=== PATIENT | female | born 1955 | race Caucasian/White ===

== ENCOUNTER 2022-09-28 06:20 | Day surgery (SDC) | payer MEDICARE, BC, SELFPAY ==
[2022-09-28] VITALS (18 sets, daily range): BP systolic 129–149; BP diastolic 66–92; PULSE 60–73; RESP 14–16; TEMP 36.2–37.1; O2SAT 94–100; BMI 33.0
[2022-09-28] MEDS: LACTATED RINGERS 1000 ML 1,000 ML 100 ML IV (06:15)
[2022-09-28] MEDS: CELECOXIB 200 MG CAPSULE PO (06:53)
[2022-09-28] MEDS: ACETAMINOPHEN 500 MG TABLET 1000 MG PO (06:53)
[2022-09-28] MEDS: OXYCODONE (CR) 10 MG TAB.ER.12H PO (06:54)
[2022-09-28] MEDS: SODIUM CHLORIDE 0.9 % (FLUSH) 10 ML SYRINGE IVF (06:54)
--- NOTE | 2022-09-28 07:09 | SUR.PREOP ---
TIME?OUT:?0736 PT/RN/MDA?VERIFICATION?OF?SURGICAL?SITE Left [place],?PROCEDURE supraclavicular nerve block,?AND?CONSENT OBTAINED?PRIOR?TO?INVASIVE?PROCEDURE.
[2022-09-28] MEDS: fentaNYL 100 MCG/2 ML inj IVP (07:38)
[2022-09-28] MEDS: MIDAZOLAM HCL 1 MG/ML inj IVP (07:38)
[2022-09-28] MEDS: CEFAZOLIN 2 GM INJ IVP (07:55)
--- NOTE | 2022-09-28 08:12 | P.NB_ITS ---
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 Images saved: Yes Medications given in 5ml increments after negative aspiration: Ropivicaine %: 0.5 mL: 20 Needle gauge: 22 Decadron (mg): 10 Precedex (mcg): 25 Patient tolerated procedure well: Yes Block Charges Block Charge (with Pro Fee): Brachial Plexus Use of Ultrasound Machine for Block: Yes- US Guidance/pain block
--- NOTE | 2022-09-28 08:12 | W.ANESCHARGE ---
Anesthesia Charges Start Date/Time Anesthesia Start Date: 09/28/22 Anesthesia Start Time: 07:50 Stop Date/Time Anesthesia Stop Date: 09/28/22 Anesthesia Stop Time: 10:45
[2022-09-28] MEDS: SODIUM CHLORIDE IRRIG SOLUTION 3,000 ML, EPINEPHrine 1 MG IRRIGATION (08:58)
--- NOTE | 2022-09-28 10:05 | PM.ORPRC ---
Procedure Note Date of procedure: 09/28/22 Procedure: PREOPERATIVE DIAGNOSIS: Left shoulder massive rotator cuff tear, AC joint arthrosis, biceps tendinopathy POSTOPERATIVE DIAGNOSIS: Left shoulder massive rotator cuff tear, AC joint arthrosis, biceps tendinopathy NAME OF OPERATION: Left shoulder arthroscopic subacromial decompression, distal clavicle excision, mini open rotator cuff repair, biceps tenodesis SURGEON: Serjio Thomas MD CONVERTER SUPERVISOR: Hiral Kilpatrick PA-C ANESTHESIA: Supraclavicular block plus general endotracheal ESTIMATED BLOOD LOSS: 20 mL COMPLICATIONS: None SPECIMENS: None DRAINS: None PREOPERATIVE ANTIBIOTICS: Ancef 2 grams INDICATIONS: The patient is a 67-year-old with a history of left shoulder pain secondary to the above diagnoses. Despite appropriate non operative management, they continue to have symptoms. Operative intervention was recommended. The risks, benefits and expected outcomes were discussed in detail. These included but were not limited to: Infection, bleeding, injury to blood vessel or nerve, venous thromboembolism. All questions were answered to their satisfaction. A modifier 22 should be added to this case. The massive size of the tear and the amount of retraction made repair quite difficult. This more than doubled the time typically required to complete the case. PROCEDURE: A supraclavicular block was placed by Anesthesia. General anesthesia was administered. The patient was placed in the high beach chair position. The left shoulder was prepped and draped in the usual sterile fashion. The glenohumeral joint was infiltrated with 20 mL of normal saline with epinephrine. The posterior portal was established, the arthroscope was introduced. The anterior portal was established, Diagnostic arthroscopy was performed with findings as follows: The biceps has a significant amount of intra-articular tendinopathy. There is degenerative fraying of anterior, posterior and superior labrum. Articular surfaces on the humeral head and glenoid are normal. There are no loose bodies. There is a full-thickness tear of the supraspinatus and infraspinatus with retraction. The biceps was tenotomized with the arthroscopic scissors, the stump debrided with the shaver. The arthroscope was placed in the subacromial space, the lateral portal was established. The Arthrex [place] was used to dissect the acromion free. The CA ligament was recessed off the anterior acromion, the AC joint was exposed. The acromioplasty was performed with the bur in the posterior portal. The bur was then placed in the lateral portal and the lateral and anterior aspect of the acromion were resected. The undersurface of the distal clavicle was resected through the lateral portal. Finally, the bur was placed in the anterior portal and the remainder of the distal clavicle was resected for a total of 10 mm. An accessory anterolateral portal was placed. The subacromial/subdeltoid bursa was aggressively debrided. There is a full-thickness tear of the supraspinatus and infraspinatus, with retraction to the glenoid rim. A fiber link was placed in the leading edge of the rotator cuff x3. The cuff was bluntly mobilized on both its bursal and joint surfaces. Arthroscopic instruments were removed. The accessory anterolateral portal was extended proximally and distally, subcutaneous dissection was taken with electrocautery to the deltoid. The deltoid was divided in line with its fibers. The static retractor was placed. The subacromial/subdeltoid bursa was debrided with the [place] scissors. The greater tuberosity was debrided to punctate bleeding bone using the arthroscopic bur. Three Arthrex Bio[employer] SwiveLock anchors were placed just off the articular surface. Both limbs of the FiberWire and fiber tape were passed using the scorpion. A SutureTape was placed in an inverted mattress fashion in the upper subscap. A fiber link was placed in the biceps. A margin convergence suture was placed in the rotator interval. We then proceeded with a lateral row of SwiveLock anchors x 2 crossing the FiberTape and incorporating the fiber link into each lateral row anchor. Finally, the FiberWire sutures were tied over the superior aspect of the cuff, completing the repair. This provides an excellent repair of the rotator cuff. The wound was irrigated with normal saline off the pump. The deltoid was repaired with an 0 Vicryl in an interrupted [id number] fashion. Subcutaneous tissues were closed with a 3-0 Vicryl. Skin was closed with a 3-0 Monocryl in a subcuticular fashion. A dry dressing, polar care and sling were applied. Sponge and needle counts were correct x2. The patient tolerated the procedure well. There were no apparent complications. They were carefully transferred to the hospital bed and taken to the postanesthesia care unit in satisfactory condition. PLAN: The patient will be discharged to home. No active range of motion of the shoulder will be allowed for 6 weeks postoperatively. They can work on active range of motion of the elbow, wrist and fingers. They will follow up in the office next week for a wound check and an AP and transscapular Y-view of the shoulder prior to being seen.
[2022-09-28] MEDS: fentaNYL 100 MCG/2 ML inj 50 MCG IVP ×2 (10:42→11:00)
--- NOTE | 2022-09-28 10:46 | W.ANESCHARGE ---
Anesthesia Charges Start Date/Time Anesthesia Start Date: 09/28/22 Anesthesia Start Time: 07:50 Stop Date/Time Anesthesia Stop Date: 09/28/22 Anesthesia Stop Time: 10:45
[2022-09-28] MEDS: hydrOXYzine pamoate 25 MG CAPSULE PO (11:42)
[2022-09-28] MEDS: OxyCODONE/APAP 5-325 TABLET 1 TAB PO (12:25)
== END 2022-09-28 13:20 | disposition home or self-care (01) ==
PROVIDERS: PCP Family Medicine; Visit Provider Orthopaedic Surgery
PROC: (CPT 23412; principal; 2022-09-28 07:45)
DX: M75.102 Unspecified rotator cuff tear or rupture of left shoulder, not specified as traumatic (principal); M19.012 Primary osteoarthritis, left shoulder; M75.22 Bicipital tendinitis, left shoulder; G89.18 Other acute postprocedural pain
CPT/HCPCS: 29826; 29827; 29824; 23412; 01630; 64415; 76942; A9270; C1713; J0171; J0330; J0690; J1100; J2250; J2405; J2704; J2795; J3010; J7120; L3670

== ENCOUNTER 2023-03-06 10:30 | Outpatient (RCR) | payer MEDICARE, BC, SELFPAY ==
--- NOTE | 2022-10-06 11:49 | PT.OPEX ---
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 MY NECK IS KILLING ME AND MY WRIST ISN'T SUPPORT. ALSO, THE PAIN IS AWFUL BUT I 'M TRYING TO GET OFF THE PAIN MEDS. PATIENT IS LATE TO EVAL D/T VOMITING PRIOR TO VISIT. SHE IS WEARING HER SLING AND SWATH APPROPRIATELY BUT CHALLENGED WITH COMFORT. 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 Preferred Name CLAUDIA Precautions Treatment Precautions/Contraindications 10/05: NO AROM UNTIL S/P 6 WEEKS AND WEAR SLING, NWB Weight Bearing Status Non-Weight Bearing Therapy Limitations/Systems Review Not Limited Objective Other/Pertinent Objective CERVICAL ROM: WFL BUT TAUT ABOUT THE UPPER TRAP/LEV SCAP L SHOULDER PROM Flexion: 76 Abduction: 68 Internal Rotation: NT External Rotation: @45 12 SHOULDER MMT: NT JOINT MOBILITY/PALPATION: PTT ABOUT THE SHOULDER TX: PROM X 20MIN ELBOW FLEX /EXT TO TOLERANCE WRIST AROM PENDULUM Assessment Assessment/Impression 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 ELIZALDE REFERRED TO PHYSICAL THERAPY POD8 S/P RTC REPAIR ( SUP/INF/SUB), BICEPS TENODESIS , BRIT, DC 09/28/22 TO EVAL AND TX; PMHX INCLUDES BUT NOT LIMITED TO LUMBAR STENOSIS , PERFORATION OF TYMPANIC MEMBRANE, GERD, H/O BONE GRAFT , S/P BUNIONECTOMY, AND H/O ACL REPAIR; SHE LIVES WITH HER SPOUSE WHO IS ASSISTING HER DURING HER RECOVERY BUT HE, TOO, HAS FUNCTIONAL MOBILITY CHALLENGES. SHE IS HERE TODAY FOR HER FIRST VISIT POST OP WITH HER SLING AND SWATH WORN APPROPRIATELY BUT C/O TIGHTNESS ABOUT THE NECK AND NOT ENOUGH SUPPORT AT THE WRIST. WE ADDRESSED THIS AT THE END OF OUR SESSION BY TIGHTENING THE ABD STRAP TO ALLOW FOR LESS PULL WELL REPOSITIONED THE ARM AND ADJUSTED THE STRAPS AROUND THE NECK. SHE REPORTS MODERATE TO HIGH PAIN USING FREQUENT ICE, PO OTC, AND REST WITH THE VERBALIZATION THAT SHE IS ATTEMPTING TO WEAN OFF HER NARCOTICS. TODAY, SHE HAS BILATERAL UPPER TRAP AND LEVATOR SCAP TAUTNESS WITH PALPABLE DISCOMFORT WHICH WE ADDRESS WITH ADJUSTING SLING AND PROVIDING CERVICAL STRETCHING. PROVIDED PROM TO HER LEFT SHOULDER NOTING GOOD PROM APPROPRIATE FOR HER STATUS POST SURGICAL INTERVENTION. SHE PERFORMED AND INSTRUCTED ON ELBOW, WRIST AND FOREARM AROM TO TOLERANCE NOTING GENTLE ELBOW FLEX D/T HER BICEPS TENODESIS. SHE IS APPROPRIATE FOR SKILLED PHYSICAL THERAPY TO ADDRESS SYMPTOM MGMT, ROM, STRENGTHENING, AND STABILIZATION. PATIENT VERBALIZED UNDERSTANDING TO ALL SKILLED INSTRUCTION. Primary Functional Limitations BATHING DRESSING REACHING USE OF LEFT UE Plan of Care Rehabilitation Potential Good Physical Therapy Goals STG: IN 4-6 WEEKS 1. PATIENT WILL REPORT PAIN <5 /10 2. PATIENT WILL ACHIEVE PROM TO 110 DEGREES FLEX 3. PATIENT WILL BE INDEPENDENT WITH BATHING AND DRESSING. LT-14 WEEKS 1. PATIENT WILL ACHIEVE FULL PROM 2. PATIENT WILL REACH OVERHEAD AND ACROSS BODY FOR IADL'S 3. PATIENT WILL BE INDEPENDENT WITH HER HEP AND PROGRESSION Coordination/Communication With Referral Source Treatment Plan/Direct Interventions Ice/Cold/Vasopneumatic,Joint Mobilization,Manual Therapy, Therapeutic Activities, Therapeutic Exercises Frequency/Duration 2W12 Patient Will Be Discharged From Therapy Completion of LTG(s), Independently Progressing Evaluation Billing Untimed Code Treatment Minutes 15 PT Eval No Charge No Complexity Moderate Certification Information Initial Certification Date 10/05/22 Ending Certification Date 12/28/22 Physician Comment/Change : Physician NPI Number #
--- NOTE | 2023-01-01 12:33 | PT.OPDNX ---
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 I PRETTY MUCH BABY'D IT ALL WEEKEND. Pain Comments 2-5/10 AT REST Preferred Name CLAUDIA Precautions Treatment Precautions/Contraindications 10/05: NO AROM UNTIL S/P 6 WEEKS AND WEAR SLING, NWB 11/09/22: BEGIN AAROM->AROM AND WEAN OUT OF SLING, WBAT Home Exercise Home Exercise Comments 11/10/22: UPDATED HEP TO INCLUDE TABLE SLIDE IN FLEX AND SCAPTION, SUPINE AAROM CHEST PRESS, AAROM PROTRACTION, YAMILET TO TOLERANCE 11/27/22: UPDATED HEP TO INCLUDE ISOMETRICS AND SCAP CLOCK AROM 12/01/22: ADD WT SHIFTS 10- X 10 SEC AND SUPINE PROPRIOCEPTION (CIRCLES, ALPHA ) 12/18/22: UPDATE TO INCLUDE WAND AAROM STDG, WALL WALKS, SIDELYING ER Objective Other/Pertinent Objective CERVICAL ROM: WFL BUT TAUT ABOUT THE UPPER TRAP/LEV SCAP L SHOULDER PROM Flexion: 76; 10/17/11 95; 116; 11/16/22 130; 12/04/22 150 Abduction: 68; 10/16/22 90; 90; 11/16/22 90; 12/04/22 92 Internal Rotation: NT External Rotation: @45 12 11/02 NT; @45 20;12/04/22 32 LEFT SHOULDER AROM: S'FLEX 11/09/22 24; 11/16/22 82/; 12/04/22 116; 12/22/22 130 S'ABD 11/09/22 22; 11/16/22 60; 88; 12/22/22 110 S'ER 11/09/22@0 2; 11/16/22 6@ 0abd; 12/04/22 @0 26 S'IR: 11/09/22 LATERAL HIP; 11/16 bottom of gluteal; 12/04/ UPPER 2/3RD GLUTEAL; 12/22/22 L5 SHOULDER MMT: NT JOINT MOBILITY/PALPATION: PTT ABOUT THE SHOULDER Patient Instructed in Risks/Benefits Yes Therapeutic Exercise Therapeutic Exercise Minutes (minutes) 30 Therapeutic Exercise: To Restore UBE 5' AAROM (FWD ONLY) Functional Status YAMILET 4 MIN STDG WALL SLIDE INTO FLEX 5 X5SEC STDG WAND AAROM ABD AND FLEX X10 THEN 5 X 5 SEC AT END RANGE STDG CC ROW X 15 HOLD 2 12.5KG STDG CC LPD X 15 HOLD 2 12.5KG STDG B'ER YELLOW TUBE X 15 SUPINE TWENTY-NINE PALMS L/R X 20 SUPINE ALPHABET NOT TODAY SIDELYING ER W/ ROLL X 15 0# SIDELYING S'ABD TO CRISTIANE X 10 SUPINE PROTRACTION X 15 1# PRONE ROW X 15 3# PRONE S'EXT X15 2# PRONE S'HABD X 15 #0 PRONE S'SCAPTION X 15 0# SUPINE S'FLEX (WAND) 10 X 5SEC NOT TODAY SUPINE CIRCLES X 15 CW/CCW 1# SUPINE WAND PROTRACTION X 15 1 # NOT TODAY: WALL SNOW MARRY TO TOLERANCE FACING WALL X 10 STDG TB (GREEN) ROW W/2 SEC PAUSE STDG TB (GREEN) S'EXT X 15 W/2 SEC PAUSE STDG WALL FLEX STRETCH X 10 HOLD 5 SEC Manual Therapy Techniques Manual Therapy Minutes (minutes) 15 Manual Therapy Techniques PROM LEFT SHOULDER ALL DIRECTIONS GHJ MOB GRADE 2 SUPERIOR-> INFERIOR GHJ MOB GRADE 2 ANTERIOR-> POSTERIOR Treatment Minutes Timed Code Treatment Minutes 45 Total Treatment Time 45 Billing Units Manual Therapy Units 1 Therapeutic Exercise Units 2 Plan of Care Physical Therapy Goals STG: IN 4-6 WEEKS 1. PATIENT WILL REPORT PAIN <5 /10 GOAL MET 2. PATIENT WILL ACHIEVE PROM TO 110 DEGREES FLEX GOAL MET 3. PATIENT WILL BE INDEPENDENT WITH BATHING AND DRESSING. GOAL MET LT-14 WEEKS 1. PATIENT WILL ACHIEVE FULL PROM 2. PATIENT WILL REACH OVERHEAD AND ACROSS BODY FOR IADL'S 3. PATIENT WILL BE INDEPENDENT WITH HER HEP AND PROGRESSION Daily Plan of Care Continue per POC Recertification Information Initial Certification Date 10/05/22 Recertification Start Date 01/02/23 Recertification Due Date 03/31/23 Reasons to Continue Skilled Therapy MRS. 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 SHE DEMONSTRATES CONSISTENT PROGRESS NOTING IMPROVEMENT FROM PROM 76 DEGREES TO 150 AND 68 DEGREES ABD TO 92. ADDITIONALLY, SINCE SHE HAS BEEN ALLOWED TO WORK AROM SHE HAS IMPROVED FROM 24 DEGREES FLEX TO 130 AND FROM 22 DEGREES ABD TO 110. WE ARE CONSISTENTLY WORKING ON GAINING FULL ROM, STRENGTH, AND PROPRIOCEPTION TO RETURN TO FULL FUNCTIONAL USE OF HER LEFT ARM. SHE WOULD BENEFIT FROM CONTINUED SKILLED PHYSICAL THERAPY TO ALLOW HER FULL, UNRESTRICTED USE OF HER LEFT UE FOR ADL'S, FAMILY AND PEER CENTERED ACTIVITIES. Rehabilitation Potential EXCELLENT Continued Plan of Care and Interventions CONTINUED RTC/SCAPULAR STRENGTHENING, ROM, AND PROPRIOCEPTION BY WAY OF THER EX, NMR, JOINT MOBILIZATION, AND SYMPTOM MGMT Provider Signature Shows Agreement With POC & Medical Necessity Physician Comment/Change Comment or Changes
== END 2023-03-15 12:15 | disposition home or self-care (01) ==
PROVIDERS: PCP Family Medicine; Visit Provider Physician Assistant
DX: Z98.890 Other specified postprocedural states (principal); M25.512 Pain in left shoulder; M19.012 Primary osteoarthritis, left shoulder; Z51.89 Encounter for other specified aftercare
CPT/HCPCS: 97035; 97110; 97140; 97162

== ENCOUNTER 2023-11-28 11:20 | Emergency (ER) | payer MEDICARE, BC, SELFPAY ==
[2023-11-28 11:26] VITALS: BP 188/97; PULSE 83; RESP 18; TEMP 36.4; O2SAT 96; BMI 32.3
[2023-11-28 11:29] VITALS: BP 152/91
--- NOTE | 2023-11-28 11:47 | ED.WOUNDLAC ---
HPI - Wound/Laceration General Time Seen by Provider: 11:24 Chief Complaint: Laceration/Wound Stated Complaint: Fell hit head Time Seen by Provider: 11/28/23 11:24 Source: patient and RN notes reviewed Mode of arrival: ambulatory Limitations: no limitations History of Present Illness HPI narrative: this 68-year-old female is coming in with a wound to the back of her left head. She was cleaning up her sewing room, sitting in a rolling chair on the plastic below it. She bent over to pick something up and the chair scooted out from behind her. She fell sideways on a metal cabinet hitting the corner of it. She has some localized pain at the wound, it did not bleed much. Her tetanus was in 2016. She has no headache, no visual changes. She is not on any blood thinners. We did discuss CT imaging. 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 She is foregoing CT imaging and I do think it is reasonable. She is well aware of signs and symptoms of head injury that would necessitate imaging. 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 This injury happened just prior to ar Related Data Home Medications ?Medication ?Instructions ?Recorded ?Confirmed calcium 325 mg-vit D3 12.5 2 tab PO BID 09/11/22 12/18/22 mcg-zinc 2.75 [id number]-[id number] tablet (Citracal-D3 Maximum Plus) cholecalciferol (vitamin D3) 50 50 mcg PO QDAY 09/11/22 12/18/22 mcg (2,000 unit) capsule (Vitamin D3) fexofenadine 180 mg tablet 180 mg PO Q24H 09/11/22 12/18/22 (Maude Allergy) fluticasone propionate 50 2 spray intranasal DAILY 09/11/22 12/18/22 mcg/actuation nasal spray,suspension glucosamine HCl 500 mg tablet 1,000 mg PO QDAY 09/11/22 12/18/22 losartan 50 mg tablet 50 mg PO DAILY 09/11/22 12/18/22 magnesium 200 mg tablet 400 mg PO QDAY 09/11/22 12/18/22 omeprazole 20 mg capsule,delayed 20 mg PO DAILY 09/11/22 12/18/22 release rosuvastatin 10 mg tablet 10 mg PO QPM 09/11/22 12/18/22 triamcinolone acetonide 0.1 % 1 applic topical 09/11/22 12/18/22 topical cream cetirizine 10 mg tablet (Zyrtec) 10 mg PO BID PRN 12/18/22 12/18/22 Allergies Allergy/AdvReac Type Severity Reaction Status Date / Time Sulfa (Sulfonamide Allergy Severe Hives Verified 12/18/22 09:45 Antibiotics) amlodipine [From [facility]] Allergy edema Verified 12/18/22 09:45 niacin Allergy Verified 12/18/22 09:45 Review of Systems Narrative: As per HPI. [facility] Medical History (Updated 11/28/23 @ 11:50 by Silvia Kincaid MD) Tear film insufficiency ?H04.129 - Dry eye syndrome of unspecified lacrimal gland (ICD-10) Presbyopia ?H52.4 - Presbyopia (ICD-10) Gastric ulcer ?K25.9 - Gastric ulcer, unspecified as acute or chronic, without hemorrhage or perforation (ICD-10) Gastric outlet obstruction ?K31.1 - Adult hypertrophic pyloric stenosis (ICD-10) Essential hypertension ?I10 - Essential (primary) hypertension (ICD-10) Spinal stenosis of lumbar region ?M48.061 - Spinal stenosis, lumbar region without neurogenic claudication (ICD-10) Pyloric stenosis ?K31.1 - Adult hypertrophic pyloric stenosis (ICD-10) Perforation of tympanic membrane ?H72.90 - Unspecified perforation of tympanic membrane, unspecified ear (ICD-10) Gastroesophageal reflux disease ?K21.9 - Gastro-esophageal reflux disease without esophagitis (ICD-10) Surgical History (Updated 11/02/22 @ 12:59 by Austin Fields) S/P arthroscopy of left shoulder (09/28/22) ?Z98.890 - Other specified postprocedural states (ICD-10) Hx of varicose vein stripping ?Z98.890 - Other specified postprocedural states (ICD-10) Hx of bone graft ?Z98.890 - Other specified postprocedural states (ICD-10) H/O vein stripping ?Z98.890 - Other specified postprocedural states (ICD-10) Status post bunionectomy ?Z98.890 - Other specified postprocedural states (ICD-10) History of tonsillectomy and adenoidectomy ?Z90.89 - Acquired absence of other organs (ICD-10) History of esophagogastroduodenoscopy (EGD) ?Z98.890 - Other specified postprocedural states (ICD-10) History of ear surgery ?Z98.890 - Other specified postprocedural states (ICD-10) History of colonoscopy ?Z98.890 - Other specified postprocedural states (ICD-10) History of appendectomy ?Z90.49 - Acquired absence of other specified parts of digestive tract (ICD-10) History of repair of anterior cruciate ligament of left knee ?Z98.890 - Other specified postprocedural states (ICD-10) S/P right rotator cuff repair (05/03/05) ?Z98.890 - Other specified postprocedural states (ICD-10) Family History (Updated 11/02/22 @ 12:54 by Austin Fields) Father Atrial fibrillation High blood pressure Renal cell carcinoma Mother Dementia Other Diabetes Social History (Reviewed 12/18/22 @ 09:46 by Paris Wilde ~ [facility]) Narrative: does not use illicit drugs nonsmoker occasional alcohol consumption Smoking Status: Never smoker Do you use any of these nicotine containing products: None Second hand tobacco smoke exposure: No How often do you have a drink containing alcohol: monthly or less How many standard drinks containing alcohol do you have on a typical day: 1 or 2 How often do you have six or more drinks on one occasion: Never AUDIT-C Alcohol total score: 1 Non-prescribed substance use: denies use Caffeine: No Are you using contraception or practicing any form of control: No Exam Const: Vital Signs, click to edit/add: Vital Signs - 24 hr 11/28/23 11:26 Temperature 97.6 F Pulse Rate [Left P ulse Oximeter] 83 Respiratory Rate 18 Blood Pressure [Le ft Upper Arm] 188/97 H Pulse Oximetry 96 Oxygen Delivery Me thod Room Air Kimberlyn is alert, interactive, no apparent distress. Ambulatory into the ED of her own accord. She has a about a 1 cm wound over the left occipital scalp. The edges are about 1-2 mm apart, discussed wound management. We settled on suturing. Patient consent was obtained, wound was anesthetized with 3 mL of 1% lidocaine. Bleeding did in Andrew after this and could see increased separation of the wound edges. It is into the dermis. Three simple interrupted sutures were placed with 3-0 Ethilon. Patient tolerated procedure well, no immediate complications. Hemostasis was observed. Standard sterile technique and simple suture tray were used. Documenting provider has reviewed patient's vital signs: yes Course Vital Signs Vital signs: Initial Vital Signs Temperature 97.6 F 11/28/23 11:26 Temperature Source Temporal Artery Scan 11/28/23 11:26 Pulse Rate 83 11/28/23 11:26 Pulse Rhythm Regular 11/28/23 11:26 Pulse Strength 3+ Normal 11/28/23 11:26 Respiratory Rate 18 11/28/23 11:26 Blood Pressure 188/97 H 11/28/23 11:26 Blood Pressure Mean 127 H 11/28/23 11:26 Blood Pressure Position Sitting 11/28/23 11:26 Pulse Oximetry 96 11/28/23 11:26 Oxygen Delivery Method Room Air 11/28/23 11:26 Vital Signs Temperature 97.6 F 11/28/23 11:26 Pulse Rate 83 11/28/23 11:26 Respiratory Rate 18 11/28/23 11:26 Blood Pressure 188/97 H 11/28/23 11:26 Pulse Oximetry 96 11/28/23 11:26 Oxygen Delivery Method Room Air 11/28/23 11:26 Temperature 97.6 F 11/28/23 11:26 Pulse Rate 83 11/28/23 11:26 Respiratory Rate 18 11/28/23 11:26 Blood Pressure 188/97 H 11/28/23 11:26 Pulse Oximetry 96 11/28/23 11:26 Oxygen Delivery Method Room Air 11/28/23 11:26 Discharge Plan Discharge Clinical Impression: Laceration of scalp Qualifiers: Encounter type: initial encounter Qualified Code(s): S01.01XA - Laceration without foreign body of scalp, initial encounter Patient Disposition: Home, Self-Care Condition: Stable Instructions: Laceration (ED) Additional Instructions: May shower but be careful of stitches and especially combing hair. Stitches need to come out in about one week. If concerns with wound infection, please seek re-evaluation (scalp wound infections unusual as the scalp is vascular). If you develop headache, vomiting, concern for complications of this head injury, please seek re-evaluation and consideration of head CT. Activity Level: Activity as Tolerated Prescriptions: No Action omeprazole 20 mg capsule,delayed release(DR/EC) 20 mg PO DAILY fluticasone propionate 50 mcg/actuation spray,suspension 2 spray intranasal DAILY triamcinolone acetonide 0.1 % cream 1 applic topical losartan 50 mg tablet 50 mg PO DAILY rosuvastatin 10 mg tablet 10 mg PO QPM fexofenadine [Maude Allergy] 180 mg tablet 180 mg PO Q24H cholecalciferol (vitamin D3) [Vitamin D3] 50 mcg (2,000 unit) capsule 50 mcg PO QDAY magnesium 200 mg tablet 400 mg PO QDAY glucosamine HCl 500 mg tablet 1,000 mg PO QDAY Rx Instructions: administer with a meal naxnqly-[id number]-copper-latia [Citracal-D3 Maximum Plus] 325 mg-12.5 mcg -2.75 mg tablet 2 tab PO BID cetirizine [Zyrtec] 10 mg tablet 10 mg PO BID PRN Follow Up/Referrals: Marcus Ferreira MD [Primary Care Provider] - Stand Alone Forms: [employer] Info Instructions
== END 2023-11-28 12:22 | disposition home or self-care (01) ==
LOC: ED 12:19
PROVIDERS: Emergency Provider Family Medicine; PCP Family Medicine
DX: S01.01XA Laceration without foreign body of scalp, initial encounter (principal); W26.9XXA Contact with unspecified sharp object(s), initial encounter
CPT/HCPCS: 12001; 99283

== ENCOUNTER 2023-12-08 10:55 | Emergency (ER) | payer MEDICARE, BC, SELFPAY ==
[2023-12-08 10:58] VITALS: BP 151/78; PULSE 59; RESP 18; TEMP 36.3; O2SAT 98; BMI 32.3
--- NOTE | 2023-12-08 11:25 | ED_ITS ---
HPI - General Adult General Chief complaint: Hypotension Stated complaint: Low BP Time Seen by Provider: 12/08/23 11:25 History of Present Illness HPI narrative: patient has red man syndrome. taking Niacin 500mg from [facility] after taking 5 minutes red face. sx of diaphoretic, red skin face and arms all over the body, nauseated, skin kumar. taken at 1000 today. mistaken Niacinamide for a supplemental . taken Benadryl 50 mg when started at home. 68-year-old woman presenting to the emergency department with concern of ?red man syndrome?. This morning about an hour prior to presentation took 500 mg of niacin. 5 minutes later became diffusely flushed diaphoretic and lightheaded. Feels like her skin kumar. This is all in the setting of an unclear rash that has waxed and waned for quite some time now. Managing with 2nd generation antihistamines. Has seen Dermatology after initially being seen by an position classification specialist. No biopsy has been done at this point. Was recommended to be taking niacinamide which later she does acknowledge has actually been taking for quite some time. Today unfortunately got niacin. Took 50 mg of diphenhydramine when this began. And then presented to this department. She has not had difficulty breathing no sensation of throat closure. Related Data Home Medications ?Medication ?Instructions ?Recorded ?Confirmed calcium 325 mg-vit D3 12.5 2 tab PO BID 09/11/22 12/08/23 mcg-zinc 2.75 hj-jvrppk-fckvhdmzz tablet (Citracal-D3 Maximum Plus) cholecalciferol (vitamin D3) 50 50 mcg PO QDAY 09/11/22 12/08/23 mcg (2,000 unit) capsule (Vitamin D3) fexofenadine 180 mg tablet 180 mg PO Q24H 09/11/22 12/08/23 (Maude Allergy) fluticasone propionate 50 2 spray intranasal DAILY 09/11/22 12/08/23 mcg/actuation nasal spray,suspension glucosamine HCl 500 mg tablet 1,000 mg PO QDAY 09/11/22 12/08/23 losartan 50 mg tablet 50 mg PO DAILY 09/11/22 12/08/23 magnesium 200 mg tablet 400 mg PO QDAY 09/11/22 12/08/23 omeprazole 20 mg capsule,delayed 20 mg PO DAILY 09/11/22 12/08/23 release rosuvastatin 10 mg tablet 10 mg PO QPM 09/11/22 12/08/23 triamcinolone acetonide 0.1 % 1 applic topical PRN 09/11/22 12/18/22 topical cream cetirizine 10 mg tablet (Zyrtec) 10 mg PO BID PRN 12/18/22 12/18/22 Allergies Allergy/AdvReac Type Severity Reaction Status Date / Time Sulfa (Sulfonamide Allergy Severe Hives Verified 12/18/22 09:45 Antibiotics) amlodipine [From [facility]] Allergy edema Verified 12/18/22 09:45 Review of Systems Status of ROS: Reports: 6 or more systems reviewed and unremarkable except as noted in History and below PFSH [facility] Medical History Tear film insufficiency ?H04.129 - Dry eye syndrome of unspecified lacrimal gland (ICD-10) Presbyopia ?H52.4 - Presbyopia (ICD-10) Gastric ulcer ?K25.9 - Gastric ulcer, unspecified as acute or chronic, without hemorrhage or perforation (ICD-10) Gastric outlet obstruction ?K31.1 - Adult hypertrophic pyloric stenosis (ICD-10) Essential hypertension ?I10 - Essential (primary) hypertension (ICD-10) Spinal stenosis of lumbar region ?M48.061 - Spinal stenosis, lumbar region without neurogenic claudication (ICD-10) Pyloric stenosis ?K31.1 - Adult hypertrophic pyloric stenosis (ICD-10) Perforation of tympanic membrane ?H72.90 - Unspecified perforation of tympanic membrane, unspecified ear (ICD- 10) Gastroesophageal reflux disease ?K21.9 - Gastro-esophageal reflux disease without esophagitis (ICD-10) Surgical History S/P arthroscopy of left shoulder (09/28/22) ?Z98.890 - Other specified postprocedural states (ICD-10) Hx of varicose vein stripping ?Z98.890 - Other specified postprocedural states (ICD-10) Hx of bone graft ?Z98.890 - Other specified postprocedural states (ICD-10) H/O vein stripping ?Z98.890 - Other specified postprocedural states (ICD-10) Status post bunionectomy ?Z98.890 - Other specified postprocedural states (ICD-10) History of tonsillectomy and adenoidectomy ?Z90.89 - Acquired absence of other organs (ICD-10) History of esophagogastroduodenoscopy (EGD) ?Z98.890 - Other specified postprocedural states (ICD-10) History of ear surgery ?Z98.890 - Other specified postprocedural states (ICD-10) History of colonoscopy ?Z98.890 - Other specified postprocedural states (ICD-10) History of appendectomy ?Z90.49 - Acquired absence of other specified parts of digestive tract (ICD- 10) History of repair of anterior cruciate ligament of left knee ?Z98.890 - Other specified postprocedural states (ICD-10) S/P right rotator cuff repair (05/03/05) ?Z98.890 - Other specified postprocedural states (ICD-10) Family History Father Atrial fibrillation High blood pressure Renal cell carcinoma Mother Dementia Other Diabetes Social History Narrative: does not use illicit drugs nonsmoker occasional alcohol consumption Smoking Status: Never smoker Do you use any of these nicotine containing products: None Second hand tobacco smoke exposure: No How often do you have a drink containing alcohol: monthly or less How many standard drinks containing alcohol do you have on a typical day: 1 or 2 How often do you have six or more drinks on one occasion: Never AUDIT-C Alcohol total score: 1 Non-prescribed substance use: denies use Caffeine: No Are you using contraception or practicing any form of control: No Exam Narrative: Exam Narrative: Pleasant. Generally appears a little frustrated. Mildly uncomfortable. Breathing easily. Lungs are clear. Oropharynx without lesion. She is diffusely mildly flushed. There are some more discrete faintly erythematous and papular eruptions on the distal right forearm. No blisters. Extremities are well perfused without edema. Heart in slowed not quite bradycardic regular rhythm. Const: Vital Signs, click to edit/add: Vital Signs - 24 hr 12/08/23 10:58 12/08/23 12:32 Temperature 97.3 F L Pulse Rate [Pulse Oximeter] 59 L 71 Respiratory Rate 18 16 Blood Pressure [Ri ght Upper Arm] 151/78 H 134/74 Pulse Oximetry 98 96 Oxygen Delivery Me thod Room Air Room Air Documenting provider has reviewed patient's vital signs: yes Course Vital Signs Vital signs: Initial Vital Signs Temperature 97.3 F L 12/08/23 10:58 Temperature Source Temporal Artery Scan 12/08/23 10:58 Pulse Rate 59 L 12/08/23 10:58 Respiratory Rate 18 12/08/23 10:58 Blood Pressure 151/78 H 12/08/23 10:58 Blood Pressure Mean 102 12/08/23 10:58 Blood Pressure Position Sitting 12/08/23 10:58 Pulse Oximetry 98 12/08/23 10:58 Oxygen Delivery Method Room Air 12/08/23 10:58 Vital Signs Temperature 97.3 F L 12/08/23 10:58 Pulse Rate 59 L 12/08/23 10:58 Respiratory Rate 18 12/08/23 10:58 Blood Pressure 151/78 H 12/08/23 10:58 Pulse Oximetry 98 12/08/23 10:58 Oxygen Delivery Method Room Air 12/08/23 10:58 Temperature 97.3 F L 12/08/23 10:58 Pulse Rate 71 12/08/23 12:32 Respiratory Rate 16 12/08/23 12:32 Blood Pressure 134/74 12/08/23 12:32 Pulse Oximetry 96 12/08/23 12:32 Oxygen Delivery Method Room Air 12/08/23 12:32 Medications Administered Medications: Discontinued Medications Generic Name Dose Route Start Last Admin Trade Name Cole PRN Reason Stop Dose Admin Diphenhydramine HCl 12.5 mg 12/08/23 11:43 12/08/23 11:57 Diphenhydramine 50 Mg/Ml Inj IVP 12/08/23 11:44 12.5 mg ONCE ONE Administration Sodium Chloride 1,000 mls @ 1,000 mls/hr 12/08/23 11:43 12/08/23 12:53 0.9 % Sodium Chloride 1000 Ml IV 12/08/23 12:42 Infused .Q1H GRAYSON Infusion Methylprednisolone Sodium Succinate 93.75 mg 12/08/23 11:43 12/08/23 12:02 Methylprednisolone Sod Succ 62.5 Mg/Ml (125) IVP 12/08/23 11:44 93.75 mg ONCE ONE Administration Medical Decision Making MDM Narrative Medical decision making narrative: I would think this is more of a flushing reaction to niacin in more rapid release form. Will hydrate and case this is more of an other reaction give a small IV diphenhydramine and a dose of Solu-Medrol. Monitor for period of time. Markedly improved on reassessment and would like to go home. No further events in the emergency department. Was not hypotensive here. I would not actually list niacin as an allergy and discussed this with patient. Will try to remove from placement on allergy list as I see has already been included. See patient discharge plan for further discuss Medical Records Medical records reviewed: Yes I reviewed the patient's medical records Discharge Plan Discharge Clinical Impression: Medication reaction, Adverse reaction to niacin Patient Disposition: Home w/ Parent or Adult Condition: Improved Additional Instructions: I would not consider this necessarily an allergy to niacin but and excessive reaction; flushing reaction. Focus on hydration today. For breakthrough itch or rash you could take diphenhydramine but if you have any sensation of difficulty breathing or throat tightness/difficulty swallowing, please take diphenhydramine and return to the emergency department. Prescriptions: No Action omeprazole 20 mg capsule,delayed release(DR/EC) 20 mg PO DAILY fluticasone propionate 50 mcg/actuation spray,suspension 2 spray intranasal DAILY triamcinolone acetonide 0.1 % cream 1 applic topical PRN losartan 50 mg tablet 50 mg PO DAILY rosuvastatin 10 mg tablet 10 mg PO QPM fexofenadine [Maude Allergy] 180 mg tablet 180 mg PO Q24H cholecalciferol (vitamin D3) [Vitamin D3] 50 mcg (2,000 unit) capsule 50 mcg PO QDAY magnesium 200 mg tablet 400 mg PO QDAY glucosamine HCl 500 mg tablet 1,000 mg PO QDAY Rx Instructions: administer with a meal pffjpee-[id number]-euem-copper-latia [Citracal-D3 Maximum Plus] 325 mg-12.5 mcg -2.75 mg tablet 2 tab PO BID cetirizine [Zyrtec] 10 mg tablet 10 mg PO BID PRN Follow Up/Referrals: Marcus Ferreira MD [Primary Care Provider] - Stand Alone Forms: [employer] Info Instructions
[2023-12-08] MEDS: 0.9 % SODIUM CHLORIDE 1000 ml 1,000 ML IV (11:55)
[2023-12-08] MEDS: diphenhydrAMINE 50 MG/ML inj 12.5 MG IVP (11:57)
[2023-12-08] MEDS: METHYLPREDNISOLONE SOD SUCC 62.5 MG/ML (125) 93.75 MG IVP (12:02)
[2023-12-08 12:32] VITALS: BP 134/74; PULSE 71; RESP 16; O2SAT 96
== END 2023-12-08 13:38 | disposition home or self-care (01) ==
PROVIDERS: Emergency Provider Family Medicine; PCP Family Medicine
DX: R23.2 Flushing (principal); T46.7X5A Adverse effect of peripheral vasodilators, initial encounter
CPT/HCPCS: 96374; 96375; 99283; 99284; J1200; J2919; J7030

== ENCOUNTER 2024-04-16 09:00 | Outpatient (RCR) | payer MEDICARE, BC, SELFPAY | END 2024-06-12 13:20 | disposition home or self-care (01) | PROVIDERS: PCP Family Medicine; Visit Provider Orthopaedic Surgery Foot and Ankle Surgery | DX: Z48.89 Encounter for other specified surgical aftercare (principal); M25.671 Stiffness of right ankle, not elsewhere classified; M25.674 Stiffness of right foot, not elsewhere classified; Z74.09 Other reduced mobility; R53.1 Weakness; R26.81 Unsteadiness on feet; Z51.89 Encounter for other specified aftercare | CPT/HCPCS: 97110; 97140; 97162; 97530 ==

== ENCOUNTER 2024-12-11 09:00 | Outpatient (RCR) | payer MEDICARE, BC, SELFPAY | END 2025-02-02 13:23 | disposition home or self-care (01) | PROVIDERS: PCP Family Medicine; Visit Provider Physician Assistant Medical | DX: Z47.1 Aftercare following joint replacement surgery (principal); M25.571 Pain in right ankle and joints of right foot; Z51.89 Encounter for other specified aftercare | CPT/HCPCS: 97032; 97110; 97112; 97140; 97161; 97535 ==